=== PATIENT | female | born 1990 | race Two or more races ===

== ENCOUNTER → 2017-11-04 | Outpatient (CLI) | payer MEDICAID ==
[2017-11-04 12:46] LABS: ABSOLUTE BASOPHILS # (AUTO) 0.1 10^3/uL (0.0-0.2); ABSOLUTE EOSINOPHILS # (AUTO) 0.1 10^3/uL (0.0-0.6); ABSOLUTE LYMPHOCYTES (AUTO) 1.7 10^3/uL (0.5-4.7); ABSOLUTE MONOCYTES (AUTO) 0.6 10^3/uL (0.1-1.4); ABSOLUTE NEUT (AUTO) 8.2 10^3/uL (1.7-8.2); BASOPHILS % (AUTO) 0.5 % (0-2); EOSINOPHILS % (AUTO) 0.5 % (0-6); HEMATOCRIT 43.4 % (36.0-47.0); HEMOGLOBIN 14.8 g/dL (12.0-15.5); LYMPHOCYTES % (AUTO) 16.2 % (13-45); MEAN CORPUSCULAR HEMOGLOBIN 28.9 pg (27.0-33.4); MEAN CORPUSCULAR HGB CONC 34.1 g/dL (32.0-36.0); MEAN CORPUSCULAR VOLUME 85 fl (80-97); MONOCYTES % (AUTO) 5.9 % (3-13); RED BLOOD COUNT 5.11 10^6/uL (3.72-5.28); RED CELL DISTRIBUTION WIDTH 13.3 % (11.5-14.0); SEGMENTED NEUTROPHILS % (AUTO) 76.9 % (42-78); WHITE BLOOD COUNT 10.7 10^3/uL (4.0-10.5)
[2017-11-04 13:02] LABS: ANION GAP 11 (5-19); BLOOD UREA NITROGEN 13 mg/dL (7-20); CALCIUM 8.9 mg/dL (8.4-10.2); CARBON DIOXIDE 28 mmol/L (22-30); CHLORIDE 100 mmol/L (98-107); CREATININE RESULT 0.65 mg/dL (0.52-1.25); GLUCOSE 85 mg/dL (75-110); SODIUM 139.2 mmol/L (137-145)
== END ==
LOC: LAB 12:30
PROVIDERS: ATTEND Emergency Medicine
DX: E86.0 Dehydration (principal); N39.0 Urinary tract infection, site not specified; R10.9 Unspecified abdominal pain
CPT/HCPCS: 36415; 80048; 85025; 87086

== ENCOUNTER → 2018-03-27 | Outpatient (CLI) | payer MEDICAID ==
--- NOTE | 2018-03-27 09:39 | RADIOLOGY REPORT (SQ) ---
EXAM DESCRIPTION: LUMBAR SPINE COMPLETE COMPLETED DATE/TIME: 03/27/2018 8:14 am REASON FOR STUDY: LUMBAGO WITH SCIATICA, RIGHT SIDE M54.41 LUMBAGO WITH SCIATICA, RIGHT SIDE COMPARISON: None. NUMBER OF VIEWS: Five views including obliques. TECHNIQUE: AP, lateral, oblique, and sacral radiographic images acquired of the lumbar spine. LIMITATIONS: None. FINDINGS: MINERALIZATION: Normal. SEGMENTATION: There is transitional anatomy, with short ribs/ long transverse processes at the T12 le sergey. ALIGNMENT: Normal. VERTEBRAE: Maintained height. No fracture or worrisome bone lesion. DISCS: Preserved height. No significant osteophytes or end plate irregularity. POSTERIOR ELEMENTS: Pedicles and facets are intact. No pars defect or posterior arch defects. HARDWARE: None in the spine. PARASPINAL SOFT TISSUES: Normal. PELVIS: Intact as visualized. No fractures or worrisome bone lesions. SI joints intact. OTHER: No other significant finding. IMPRESSION: NORMAL 5 VIEW LUMBAR SPINE. TECHNICAL DOCUMENTATION: JOB ID: [id number] [employer]- All Rights Reserved Reading location - IP/workstation name: [facility]
== END ==
LOC: OD 07:58
PROVIDERS: ATTEND Nurse Practitioner Family
DX: M54.41 Lumbago with sciatica, right side (principal)
CPT/HCPCS: 72110

== ENCOUNTER → 2018-11-29 | Outpatient (CLI) | payer MEDICAID | LOC: OD 15:39 | PROVIDERS: ATTEND Nurse Practitioner Family | DX: B80 Enterobiasis (principal); L29.0 Pruritus ani | CPT/HCPCS: 87045; 87177; 87205; 89055 ==

== ENCOUNTER → 2018-12-03 | Outpatient (CLI) | payer MEDICAID ==
[2018-12-03 11:22] LABS: BACTERIA (WET MOUNT) 3+ BACTERIA SEEN; EPITHELIALS (WET MOUNT) 3+ EPITHELIALS SEEN; RBCS (WET MOUNT) 1+ RBCS SEEN; T.VAGINALIS (WET MOUNT) NO TRICHOMONAS SEEN; WBCS (WET MOUNT) 3+ WBCS SEEN; YEAST (WET MOUNT) NO YEAST SEEN
[2018-12-03 13:00] LABS: CHLAM PCR NOT DETECTED (NOT DETECT); GON PCR NOT DETECTED (NOT DETECT)
== END ==
LOC: LAB 11:09
PROVIDERS: ATTEND Nurse Practitioner Acute Care
DX: N89.8 Other specified noninflammatory disorders of vagina (principal)
CPT/HCPCS: 87210; 87491; 87591

== ENCOUNTER 2019-04-23 12:01 | Day surgery (SDC) | payer MEDICAID ==
[~2019-04-23 12:01] MED LIST: DIPHENHYDRAMINE HCL 50 MG/ML VIAL ONE; EPINEPHRINE INJ 1 MG/10 ML DISP.SYRIN ONE; FLUMAZENIL INJ 0.5 MG/5 ML VIAL ONE; GLUCAGON,HUMAN RECOMB 1 MG INJ ONE; NALOXONE HCL INJ/PF 0.4 MG/1 ML SDV ONE; ONDANSETRON HCL INJ/PF 4 MG/2 ML SDV ONE
[2019-04-23] MEDS: MIDAZOLAM 2 MG/2 ML INJ ONE ×2 (12:53→12:56)
[2019-04-23] MEDS: FENTANYL CITRATE INJ/PF 100 MCG/2 ML AMPUL ONE ×2 (12:54→12:57)
--- NOTE | 2019-04-23 13:03 | Operative Report ---
Operative Report DATE OF SURGERY: 04/23/19 Operative Report: The risks benefits and alternatives of the procedure explained to the patient in detail and informed consent is obtained.A GIF Olympus video scope was inserted into the patient's mouth and hypopharynx, the esophagus is identified intubated and insufflated, the scope was then advanced through the esophagus stomach and duodenum, retroflexion maneuver is done, the esophagus stomach and first and second portions of the duodenum examined. PREOPERATIVE DIAGNOSIS: Gastroesophageal reflux disease POSTOPERATIVE DIAGNOSIS: Gastritis status post biopsy for Helicobacter pylori. Hiatal hernia OPERATION: EGD with biopsy SURGEON: BHNAU LONDON ANESTHESIA: Moderate Sedation TISSUE REMOVED OR ALTERED: As noted above. COMPLICATIONS: None. ESTIMATED BLOOD LOSS: None. INTRAOPERATIVE FINDINGS: As noted above. PROCEDURE: Patient tolerated the procedure well. No immediate postprocedure complications are noted. Patient discharged in good condition. Discharge date 04/23/2019. Discharge diet: Regular. Discharge activity: Regular. 2 to 3-week follow-up to discuss findings. Patient is instructed to call the office or proceed to the emergency room should there be any further questions. Wait on the pathology.
[2019-04-23 14:14] VITALS: BP 111/62
== END 2019-04-23 14:10 | disposition home or self-care (01) ==
LOC: END 12:01
PROVIDERS: ATTEND Internal Medicine Gastroenterology
DX: K21.9 Gastro-esophageal reflux disease without esophagitis (principal); K29.50 Unspecified chronic gastritis without bleeding; K44.9 Diaphragmatic hernia without obstruction or gangrene; Z79.899 Other long term (current) drug therapy; J45.909 Unspecified asthma, uncomplicated
CPT/HCPCS: 43239; 88305 ×2; J2250; J3010; J0171; J1200; J1610; J2310; J2405; J3490

== ENCOUNTER → 2019-05-09 | Outpatient (CLI) | payer MEDICAID ==
--- NOTE | 2019-05-09 11:57 | RADIOLOGY REPORT (SQ) ---
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 TECHNIQUE: Under fluoroscopic guidance, patient ingested effervescent granules followed by thick and thin barium. Fluoroscopic spot images and routine radiographic images acquired and stored on PACS. 12 MM BARIUM TABLET GIVEN: Yes. No significant delay in passage. LIMITATIONS: None. FLUOROSCOPY TIME: FLUORO TIME: 2.6 minutes 30 digital fluoroscopic images saved to PACS. FINDINGS: NEUROMUSCULAR COORDINATION OF SWALLOW: Normal. No aspiration. ESOPHAGEAL MOTILITY: Slow peristalsis. Overall slow esophageal motility, without esophageal tertiary contractions or esophageal spasm. ESOPHAGEAL MUCOSA: Normal mucosa without masses or ulceration. GASTRO-ESOPHAGEAL JUNCTION: No hiatal hernia. No Schatzki's ring. No distal esophageal stricture. Trace gastroesophageal reflux. STOMACH: Normal without masses or ulcerations. Normal gastric motility. GASTRIC OUTLET: No delay in emptying. Normal pylorus. DUODENAL BULB: Normal distention. No spasm or ulceration. DUODENUM: Mucosa normal. No extrinsic masses or malrotation. PROXIMAL SMALL BOWEL: Mucosa normal. No extrinsic masses or malrotation. NON-GI TRACT STRUCTURES: No significant finding. OTHER: No other significant finding. IMPRESSION: Overall decreased esophageal motility No distal esophageal stricture or Schatzki's ring. No hiatal hernia. Trace gastroesophageal reflux. COMMENT: Quality ID [id number]: Final reports for procedures using fluoroscopy that document radiation exp osure indices, or exposure time and number of fluorographic images (if radiation exposure indices are not available) TECHNICAL DOCUMENTATION: JOB ID: [id number] [employer]- All Rights Reserved Reading location - IP/workstation name: [facility]
== END ==
LOC: RAD 08:16
PROVIDERS: ATTEND Surgery
DX: K22.0 Achalasia of cardia (principal)
CPT/HCPCS: 74247

== ENCOUNTER 2019-05-28 08:04 | Day surgery (SDC) | payer MEDICAID ==
[2019-05-28] MEDS: MIDAZOLAM 2 MG/2 ML INJ ONE ×2 (09:18→09:29)
[2019-05-28] MEDS: FENTANYL CITRATE INJ/PF 100 MCG/2 ML AMPUL ONE ×3 (09:20→09:34)
--- NOTE | 2019-05-28 09:56 | Operative Report ---
Nonrecallable Operative Report DATE OF SURGERY: 05/28/19 PREOPERATIVE DIAGNOSIS: gerd POSTOPERATIVE DIAGNOSIS: gerd OPERATION: esophagogastroduodenoscopy, bautista placement SURGEON: RAJ HOLLINGSWORTH ANESTHESIA: Moderate Sedation TISSUE REMOVED OR ALTERED: none COMPLICATIONS: none ESTIMATED BLOOD LOSS: 0 INTRAOPERATIVE FINDINGS: patulent ge junction PROCEDURE: see dictation
--- NOTE | 2019-05-28 10:02 | Discharge Summary ---
Discharge Summary (SDC) - Discharge Final Diagnosis: gerd Date of Surgery: 05/28/19 Condition: Good Referrals: LILLIAM PACE FNP-C [Primary Care Provider] - Discharge Diet: As Tolerated Discharge Activity: Activity As Tolerated Report the Following to Your Physician Immediately: Shortness of Breath, Nausea, Vomiting, Increase in Pain
[2019-05-28 10:47] VITALS: BP 107/66
--- NOTE | 2019-05-28 11:39 | OPERATIVE REPORT E ---
Operative Report NAME: ANGELA MOLINA : 1990 AGE: 28Y DATE OF SURGERY: 05/28/2019 ROOM: PREOPERATIVE DIAGNOSIS: GASTROESOPHAGEAL REFLUX DISEASE. POSTOPERATIVE DIAGNOSIS: GASTROESOPHAGEAL REFLUX DISEASE. OPERATION: Esophagogastroduodenoscopy with bautista placement. SURGEON: RAJ HOLLINGSWORTH M.D. PROCEDURE: The patient was brought to the endoscopy suite, awake, alert, and in stable condition. Placed on the endoscopy table, given IV sedation. Appropriate timeout and site verification was obtained. She was placed in left lateral decubitus position. The Olympus gastroscope was then utilized for the procedure. It was passed into the posterior pharynx and down the esophagus. We entered the stomach easily. There was a patulent GE junction. The stomach was visualized. There was no mucosal abnormalities. The antrum was identified as well as the pylorus. The pylorus was intubated and the duodenal bulb was identified and no evidence of any ulcerative disease. The second portion of the duodenum was also visualized and it appeared to be normal. As we withdrew the scope we performed a retroflexed J-maneuver and the GE junction was identified from within the stomach. There was a small hiatal hernia. The scope was then relaxed and pulled back through the GE junction which was measured at exactly 40 cm. We then removed the scope. We used the Bautista catheter placement unit and passed it into the posterior pharynx and set the Bautista device at 36 cm, 6 cm from the GE junction. We then affixed the monitor to the side of the esophagus and removed the delivery device. We rescoped the patient and noted good adhesion to the esophagus at 36 cm. We then removed the scope which completed the procedure. The patient was then transferred to recovery in stable condition. DICTATING PHYSICIAN: RAJ HOLLINGSWORTH M.D. [id number] PHY#: [id number] ID: [id number] JOB#: [id number] ACCT: [id number] cc:RAJ HOLLINGSWORTH M.D. >
== END 2019-05-28 10:45 | disposition home or self-care (01) ==
LOC: END 08:04
PROVIDERS: ATTEND Surgery
DX: K22.4 Dyskinesia of esophagus (principal); K21.9 Gastro-esophageal reflux disease without esophagitis; J45.909 Unspecified asthma, uncomplicated; M41.9 Scoliosis, unspecified; Z86.010 Personal history of colon polyps; Z79.899 Other long term (current) drug therapy; Z01.818 Encounter for other preprocedural examination
CPT/HCPCS: 43239; J2250; J3010; J0171; J1200; J1610; J2310; J2405; J3490

== ENCOUNTER → 2019-07-05 | Day surgery (SDC) | payer MEDICAID ==
[~2019-07-05] MED LIST changes: -DIPHENHYDRAMINE HCL 50 MG/ML VIAL ONE; -EPINEPHRINE INJ 1 MG/10 ML DISP.SYRIN ONE; -FLUMAZENIL INJ 0.5 MG/5 ML VIAL ONE; -GLUCAGON,HUMAN RECOMB 1 MG INJ ONE; +LIDOCAINE 2% JELLY 5 ML TUBE ONE; -NALOXONE HCL INJ/PF 0.4 MG/1 ML SDV ONE; -ONDANSETRON HCL INJ/PF 4 MG/2 ML SDV ONE
== END ==
LOC: END 09:30
PROVIDERS: ATTEND Surgery
DX: K21.9 Gastro-esophageal reflux disease without esophagitis (principal)
CPT/HCPCS: 91010; J3490

== ENCOUNTER 2019-07-20 16:57 | Emergency (ER) | payer MEDICAID ==
[2019-07-20] MEDS ORDERED: DIPHENHYDRAMINE HCL 50 MG/ML VIAL IV ONE ×2 (17:46→17:58)
--- NOTE | 2019-07-20 18:44 | ER Document Report ---
HPI - HPI Pain Level: 0 Notes: Patient is an otherwise healthy 29-year-old female presented to the emergency department with what she believes is a dystonic reaction to Reglan. Patient reports she just started taking Reglan yesterday for esophageal spasms. She states she took 1 dose yesterday and 1 dose this morning at 9 AM. This afternoon around 330 she started having locking sensation in her facial muscles and spasms in her tongue. At the time of arrival actually all symptoms have re solved. At the time of her symptoms she denied having any difficulty swallowing but stated that she had difficulty speaking. - REPRODUCTIVE Reproductive: DENIES: : - DERM Skin Color: Normal <VIRY ANGELA - Last Filed: 07/21/19 01:52> <LISA SCHULTZ - Last Filed: 07/21/19 22:37> - HPI Time Seen by Provider: 07/20/19 17:23 Past Medical History - General Information source: Patient - Social History Smoking Status: Never Smoker Frequency of alcohol use: None Drug Abuse: None Family History: Reviewed & Not Pertinent Patient has suicidal ideation: No Patient has homicidal ideation: No - Past Medical History Cardiac Medical History: Denies: Hx Coronary Artery Disease, Hx Heart Attack, Hx Hypertension Pulmonary Medical History: Reports: Hx Pneumonia - 2010 Denies: Hx Asthma, Hx Bronchitis, Hx COPD Neurological Medical History: Denies: Hx Cerebrovascular Accident, Hx Seizures Renal/ Medical History: Denies: Hx Peritoneal Dialysis Musculoskeletal Medical History: Denies Hx Arthritis Psychiatric Medical History: Reports: Hx Depression Past Surgical History: Denies: Hx Hysterectomy - Immunizations Hx Diphtheria, Pertussis, Tetanus Vaccination: Yes <VIRY ANGELA - Last Filed: 07/21/19 01:52> Vertical Provider Document - CONSTITUTIONAL Notes: PHYSICAL EXAMINATION: GENERAL: Well-appearing, well-nourished and in no acute distress. HEAD: Atraumatic, normocephalic. EYES: Pupils equal round extraocular movements intact, conjunctiva are normal. ENT: Nares patent NECK: Normal range of motion LUNGS: No respiratory distress Musculoskeletal: Normal range of motion NEUROLOGICAL: Normal speech, normal gait. PSYCH: Normal mood, normal affect. SKIN: Warm, Dry, normal turgor, no rashes or lesions noted. - INFECTION CONTROL TRAVEL OUTSIDE OF THE [place] IN LAST 30 DAYS: No <VIRY ANGELA - Last Filed: 07/21/19 01:52> Course - Re-evaluation Re-evalutation: At the time of my initial evaluation patient was calm and had no symptoms. Within a few minutes her did call out stating that she was having a feeling of locking up of her facial muscles. I did go in and evaluate the patient and she appeared to have rhythmic movement with her mouth and a locking of her muscles. We did administer 25 mg of IV Benadryl and called to Dr. Schultz to the bedside. He recommended giving the other 25 mg of Benadryl for a total of 50 mg IV. Patient will be monitored for symptom resolution. Patient was monitored in the emergency department for approximately 1 hour, all of her symptoms have resolved after giving the IV Benadryl. Patient will be instructed to take Benadryl every 4-6 hours at home for the next 1 to 2 days. She will follow-up with her primary care provider. She will return to the emergency department with any new or worsening symptoms and she will not take Reglan anymore. - Vital Signs Vital signs: Temp Pulse Resp BP Pulse Ox 98.3 F 75 16 134/82 H 100 07/20/19 17:03 07/20/19 17:03 07/20/19 17:03 07/20/19 17:03 07/20/19 17:03 <VIRY ANGELA - Last Filed: 07/21/19 01:52> - Re-evaluation Re-evalutation: I personally and independently obtained patient history and examined the patient in conjunction with the APC and agree with the assessment, treatment plan and disposition of the patient as recorded by the APC, and have reviewed the APC's note. HISTORY OF PRESENT ILLNESS: Patient is a 29-year-old female that presents to the emergency department for chief complaint of jaw tightness, and pain. Other than noted above, the 12 point review of systems was reviewed with the patient and were negative, all pertinent findings are included in the HPI. PHYSICAL EXAMINATION: Vital signs reviewed, nursing noted reviewed. GENERAL: Well-appearing, well-nourished and in no acute distress. HEAD: Atraumatic, normocephalic. EYES: Eyes appear normal, conjunctiva are normal. ENT: nares patent, oropharynx clear without exudates. Moist mucous membranes. Patient was able to open her jaw, but did have some tightness, and what appeared to be muscle spasming or clonus to her facial muscles. Patient was noted to have dystonic movement of her tongue as well. NECK: Normal range of motion, supple without lymphadenopathy LUNGS: Breath sounds clear to auscultation bilaterally and equal. No wheezes rales or rhonchi. HEART: Regular rate and rhythm without murmurs EXTREMITIES: Nontender, good range of motion, no pitting or edema. NEUROLOGICAL: No focal neurological deficits PSYCH: Appears mildly anxious on exam. SKIN: Warm, Dry, normal turgor, no rashes or lesions noted on exposed skin MEDICAL DECISION MAKING: Patient's clinical exam is most consistent with a dystonic reaction, she was recently started on Reglan, was given IV Benadryl, and her symptoms did resolve, and ultimately advised to discontinue Reglan and follow-up with her prescribing physician. Please review detail APC documentation. *Note is created using voice recognition software and may contain spelling, syntax or grammatical errors. - Vital Signs Vital signs: Temp Pulse Resp BP Pulse Ox 98.3 F 70 16 130/76 H 100 07/20/19 18:51 07/20/19 18:51 07/20/19 18:51 07/20/19 18:51 07/20/19 18:51 <LISA SCHULTZ - Last Filed: 07/21/19 22:37> Discharge <VIRY ANGELA - Last Filed: 07/21/19 01:52> <LISA SCHULTZ - Last Filed: 07/21/19 22:37> - Discharge Clinical Impression: Dystonic drug reaction Condition: Stable Disposition: HOME, SELF-CARE Additional Instructions: Dystonic Reaction to Medication Your symptoms were caused by the effects of medication on the "muscle control" areas of the brain. This results in uncontrollable movements and muscle spasms. The symptoms usually start with the mouth, jaw, and tongue, but may involve any area of the body. Anti-nausea medications and psychiatric medications (such as Compazine, Reglan, Haldol) can cause this side effect. The usual treatment is diphenhydramine (Benadryl). Mild cases may require only oral medication. However, intravenous medication is most rapidly effective and is usually necessary for severe reactions. It's usually a good idea to take diphenhydramine by mouth for a day or two after the emergency treatment. Your doctor will discuss this with you. It's best to avoid the medicine that caused this reaction in the future. But if it's important that you continue this medicine, you can do so, while using Benadryl on a regular basis to suppress the dystonic reaction. This is not a true allergy. Return if muscle pains or spasms, difficulty breathing or swallowing, or uncontrollable motions occur again. Please continue to take Benadryl 1 to 2 tablets every 6 hours for the next 1 to 2 days. Follow-up with your primary care provider. Do not take Reglan again. Return to the emergency department for any new or worsening symptoms. Referrals: LILLIAM PACE FNP-C [Primary Care Provider] - Follow up as needed
[2019-07-20 18:52] VITALS: BP 130/76
== END 2019-07-20 18:54 | disposition home or self-care (01) ==
LOC: ER 16:57
DX: G24.02 Drug induced acute dystonia (principal); T45.0X5A Adverse effect of antiallergic and antiemetic drugs, initial encounter
CPT/HCPCS: 99283; 96374; J1200

== ENCOUNTER → 2020-02-16 | Outpatient (CLI) | payer MEDICAID ==
[2020-02-16 20:36] LABS: BACTERIA (WET MOUNT) 4+ BACTERIA SEEN; EPITHELIALS (WET MOUNT) 4+ EPITHELIALS SEEN; RBCS (WET MOUNT) NO RBCS SEEN; T.VAGINALIS (WET MOUNT) NO TRICHOMONAS SEEN; WBCS (WET MOUNT) 4+ WBCS SEEN; YEAST (WET MOUNT) NO YEAST SEEN
[2020-02-16 22:02] LABS: CHLAM PCR NOT DETECTED (NOT DETECT)
== END ==
LOC: LAB 20:25
PROVIDERS: ATTEND Nurse Practitioner Family
DX: N76.0 Acute vaginitis (principal); R30.0 Dysuria; R82.71 Bacteriuria
CPT/HCPCS: 87086; 87210; 87491; 87591